=== PATIENT | female | born 1990 | race African-American/Black ===

== ENCOUNTER 2020-04-21 14:09 | Observation (INO) | payer SELFPAY ==
[~2020-04-21] VITALS: Ht 180.3 cm; Wt 100.2 kg
[2020-04-21] MEDS ORDERED: IV RINGERS,LACTATED 1000ML 1,000 ML IV PRN (14:45)
[2020-04-21 15:10] LABS: BASO % 1 % (0-3); EOS % 0 % (0-3); HEMATOCRIT 35.8 % (36.0-47.0); HEMOGLOBIN 12.8 g/dL (12.0-15.5); LYMPH # 1.6 x10^3/uL (1.0-4.8); LYMPH % 17 % (24-48); MEAN CORPUSCULAR HEMOGLOBIN 33 pg (25-35); MEAN CORPUSCULAR HGB CONC 36 g/dL (31-37); MEAN CORPUSCULAR VOLUME 92 fL (79-100); MONO # 0.4 x10^3/uL (0.0-1.1); MONO % 4 % (0-9); NEUT # 7.4 x10^3/uL (1.8-7.7); NEUT % 78 % (31-73); PLATELET COUNT 246 x10^3/uL (140-400); RED BLOOD COUNT 3.88 x10^6/uL (3.50-5.40); RED CELL DISTRIBUTION WIDTH 13.6 % (11.5-14.5); WHITE BLOOD COUNT 9.5 x10^3/uL (4.0-11.0)
--- NOTE | 2020-04-21 15:37 | RAD ---
EXAM: Ultrasound US OB >14 WEEKS 04/21/2020 2:49 PM INDICATION: Minimal care, questionable EDC. COMPARISON: None FINDINGS: There is a single living intrauterine gestation in cephalic position. heart rate is [address] acenta is anterior, grade biometry: Biparietal diameter: 9.26 cm, 37 weeks, 4 days Head circumference: 33.58 cm, 38 weeks, 3 days Abdominal circumference: 32.39 cm, 36 weeks, 2 days Femur length: 7.37 cm, 37 weeks, 5 days HC/AC ratio: 1.04 DEMARCO: 7.5 Estimated gestational age by ultrasound: 37 weeks 4 days. Estimated weight: 6 lbs. 13 oz. Estim ated due date 05/08/2020. IMPRESSION: Single living intrauterine in cephalic position, heart rate 124 bpm. Gest ational age by ultrasound 37 weeks 4 days. Electronically signed by: Bonita Sanchez MD (04/21/2020 3:34 PM) [id number]
[2020-04-21 16:09] LABS: BILIRUBIN,URINE NEGATIVE (NEG); CLARITY,URINE CLEAR; COLOR,URINE YELLOW; NITRITE,URINE NEGATIVE (NEG); PROTEIN,URINE NEGATIVE (NEG-TRACE)
[2020-04-21 16:27] LABS: BACTERIA,URINE 0 /HPF (0-FEW); RBC,URINE RARE /HPF (0-2); WBC,URINE RARE /HPF (0-4)
[2020-04-21 16:29] LABS: BARBITURATES NEG (NEG); BENZODIAZEPINES NEG (NEG); CANNABINOIDS NEG (NEG); COCAINE NEG (NEG); METHADONE NEG (NEG); OPIATES NEG (NEG); PHENCYCLIDINE NEG (NEG)
[2020-04-21 16:31] LABS: AMPHETAMINE/METHAMPHETAMINE NEG (NEG)
[2020-04-21] MEDS ORDERED: BENZOCAINE 20% TOPICAL AEROSOL SPRAY 57GM CAN. TP PRN (18:45)
[2020-04-21] MEDS ORDERED: ACETAMINOPHEN 325 MG TABLET. PO PRN (20:45)
[2020-04-21 20:55] VITALS: BP 104/56
--- NOTE | 2020-04-21 21:12 | NUR ---
After much discussion with cook house laborer, motor vehicles supervisor, LINING MACHINE TENDER and staff, patient transfered to room 343 to be observed through night due to being homeless and no snf available. Orders recieved. Pt ambulated to room 343 from 386. Unable to do suicide screen due to social/mental difficulties. Pt a very poor historian and changes her responses to all questions about her health and social history frequently.
[2020-04-22 06:01] VITALS: BP 103/64
--- NOTE | 2020-04-22 08:00 | NUR ---
To room for assessment, Pt resting with eyes closed, states "I want to be left alone," meal offered and she declined, encouraged to call for meal when ready, phone calls to homeless shelters for placement by this nurse
[2020-04-22 09:30] VITALS: BP 101/63
--- NOTE | 2020-04-22 09:30 | NUR ---
Pt has ordered meal, to room for assessment, states she has no where to go following dismissal, explained that we are trying to find a placement, lab wanting more blood for HSV, Pt expressing frustration about lab draws, appears angry and states that we are not trying to help her by confirming HSV diagnosis, this nurse explained rationale for lab draw and expressed desire to help her, Pt refuses lab draw at this time, will call if she changes her mind
--- NOTE | 2020-04-22 10:57 | NUR ---
Pt planning to go to [facility] in [place] at 7 pm via cab, bed reserved at that facility, also planning to speak with the director at [facility] for a more permanent placement Addendum: 04/22/20 at 1425 by PAOLA SIN RN Pt planning to speak with director at [facility], this RN has already spoken with the director who asked to have the Pt contact her
--- NOTE | 2020-04-22 12:20 | NUR ---
Phone call to Dr. White. informed of Pt refusal for HSV lab draw, instructed to will Pt of C/S if lesions during labor Addendum: 04/22/20 at 1426 by PAOLA SIN RN instructed RN to inform Pt of C/S if she has lesions during labor
--- NOTE | 2020-04-22 12:30 | NUR ---
Informed Pt of likelihood of having a C/S if herpes lesions present at time of labor. Pt states she will worry about that when the time come. Appears frustrated and states "Why is everyone worried about this? (pointing to her abdomen). I never planned to have another child. I wanted to terminate the ." Reports no movement when asked by nurse. Refuses monitoring. States she did speak with the director at [facility] but is not able to confirm placement yet.
[2020-04-22 14:00] VITALS: BP 99/58
--- NOTE | 2020-04-22 14:00 | NUR ---
Reassurance given that we would take good care of her baby after delivery if she chose to deliver here, also informed her that she would not have to see her baby if she didn't want to, Pt became agitated, "Why are you so focused on the baby? You are obsessed with this!" this RN apologized profusely, Pt refused FHT with Doppler as part of VS
--- NOTE | 2020-04-22 15:29 | NUR ---
Phone call to Dr. White, informed of Pt's comments regarding termination of , options discussed, Pt to follow up at [facility]
--- NOTE | 2020-04-22 17:54 | NUR ---
Dismissal instructions given with phone numbers for [facility] and [facility], verbalized understanding, Pt wanting to leave now, refuses VS, cab called
== END 2020-04-22 18:15 | disposition home or self-care (01) ==
LOC: 3 SO LND 14:09 → 3 NORTH 20:50
PROVIDERS: ADMIT Obstetrics & Gynecology; ATTEND Obstetrics & Gynecology
DX: O26.893 Other specified pregnancy related conditions, third trimester (principal); N89.8 Other specified noninflammatory disorders of vagina; O36.8130 Decreased fetal movements, third trimester, not applicable or unspecified; Z3A.38 38 weeks gestation of pregnancy; Z21 Asymptomatic human immunodeficiency virus [HIV] infection status; Z79.899 Other long term (current) drug therapy
CPT/HCPCS: 76805; 80307; 81001; 85025; 86703; 86762; 87340; 87491; 87591; G0378; G0379; 36415; 59025; 86696